=== PATIENT | female | born 1960 | race Caucasian/White ===

== ENCOUNTER 2022-08-05 16:14 | Emergency (ER) | payer BC ==
[~2022-08-05] VITALS: Ht 157.5 cm; Wt 77.3 kg
[2022-08-05 16:23] VITALS: BP 173/92
[2022-08-05] MEDS ORDERED: NAPROXEN500 MG PO (18:49)
[2022-08-05] MEDS ORDERED: FLEXERIL5 M1 PO (18:49)
[2022-08-05 18:58] VITALS: BP 173/92
== END 2022-08-05 18:58 | disposition home or self-care (01) | DRG 563 ==
LOC: ED 16:14
DX: S39.012A Strain of muscle, fascia and tendon of lower back, initial encounter (principal); X50.9XXA Other and unspecified overexertion or strenuous movements or postures, initial encounter